=== PATIENT | male | born 1940 | race American Indian/Alaskan Native ===

== ENCOUNTER 2019-02-16 08:01 | Day surgery (SDC) | payer MEDICARE ==
[~2019-02-16 08:01] MED LIST: ceFAZolin/STERILE WATER 2 GM/20 ML SYRINGE IV NR
--- NOTE | 2019-02-16 09:00 | Anesthesia Consultation ---
Anesthesia Consult and Med Hx Date of service: 02/16/19 - Airway Anesthetic Teeth Evaluation: Partials ROM Head & Neck: Adequate Mental/Hyoid Distance: Adequate Mallampati Class: Class II Intubation Access Assessment: Good - Pulmonary Exam CTA: Yes - Cardiac Exam Cardiac Exam: RRR - Pre-Operative Health Status ASA Pre-Surgery Classification: ASA3 Proposed Anesthetic Plan: General (DM, HTn, hypothyroid for GA , clearance on chart) - Pulmonary Hx Smoking: No Hx Sleep Apnea: No (NEELIMA PRE SCREEN HIGH RISK) - Cardiovascular System Hx Hypertension: Yes (X 5 YRS) - Central Nervous System Hx Back Pain: Yes (NECK AND BACK PAIN) - Endocrine Hx Hypothyroidism: Yes
[2019-02-16] MEDS ORDERED: HYDROmorphone 1 MG/1 ML INJ IV PRN (09:01)
[2019-02-16] MEDS ORDERED: ONDANSETRON 4 MG/2 ML INJ IV PRN (09:01)
--- NOTE | 2019-02-16 09:01 | Anesthesia Day of Surgery ---
Anesthesia Day of Surgery - Day of Surgery Patient Examined: Yes Patient H&P Reviewed: Yes Patient is NPO: Yes
[2019-02-16] MEDS ORDERED: LIDOCAINE MPF (2%) 20 MG/1 ML VIAL 5 ML ONE (09:50)
[2019-02-16] MEDS ORDERED: HYDROmorphone 1 MG/1 ML INJ ONE (09:50)
[2019-02-16] MEDS ORDERED: PROPOFOL 200 MG/20 ML VIAL IV ONE (09:50)
[2019-02-16] MEDS ORDERED: LACTATED RINGERS 1,000 ML IV SCH (10:00)
[2019-02-16] MEDS ORDERED: MIDAZOLAM 2 MG/2 ML INJ IV NR (10:00)
[2019-02-16] MEDS ORDERED: WATER FOR IRRIG STERILE 2000 ML IR ONE (10:15)
[2019-02-16] MEDS ORDERED: ONDANSETRON 4 MG/2 ML INJ ONE (10:39)
--- NOTE | 2019-02-16 10:41 | Short Stay Summary ---
Short Stay Documentation Date of service: 02/16/19 - History H&P: obtained from office - Allergies and Medications Current Medications: Allergies No Known Allergies Allergy (Verified 02/02/19 15:52) Home Medications Medication Instructions Recorded Confirmed Last Taken Type Bicalutamide [Casodex] 50 mg PO DAILY 02/02/19 02/16/19 02/15/19 09:00 History Levothyroxine [Synthroid] 75 mcg PO QAM 02/02/19 02/16/19 02/15/19 09:00 History Lisinopril [Zestril] 20 mg PO QDAY 02/02/19 02/16/19 02/15/19 09:00 History glipiZIDE [Glucotrol] 5 mg PO DAILY 02/02/19 02/16/19 02/15/19 09:00 History Active Medications Cefazolin Sodium (Ancef/Sterile Water 2 Gm/20 Ml) 2 gm IV PREOP NR Stop: 02/16/19 23:59 Hydromorphone HCl (Dilaudid) 0.25 mg IV Q10MIN PRN PRN Reason: Pain, Moderate (4-6) Stop: 02/16/19 20:00 Lactated Ringer's (Lactated Ringers) 1,000 mls @ 75 mls/hr IV DIRECT ABDIAS Last Admin: 02/16/19 09:30 Dose: 75 mls/hr Documented by: Midazolam HCl (Versed) 2 mg IV PREOP NR Stop: 02/16/19 23:59 Last Admin: 02/16/19 09:40 Dose: 2 mg Documented by: Ondansetron HCl (Zofran) 4 mg IV ONCE PRN PRN Reason: Nausea And Vomiting Stop: 02/16/19 16:00 - Brief post op/procedure progress note Date of procedure: 02/16/19 Pre-op diagnosis: left hydronephrosis, prostate ca Post-op diagnosis: same Procedure: cysto, left rpg Findings: J hooking of left ureter Surgeon: DILCIA CLARK - Hospital course Hospital course: bactim & norco on chart - Disposition Condition at discharge: Stable Disposition: DC-01 TO HOME OR SELFCARE Short Stay Discharge Plan Follow up with: ARLENE ASHLEY [Other] - 7 Days
--- NOTE | 2019-02-16 10:58 | Operative Report ---
PREOPERATIVE DIAGNOSIS: Left hydronephrosis, prostate cancer. 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 PROCEDURE: Cystoscopy, left retrograde pyelogram. SURGEON: Hebert Dimas MD. ANESTHESIA: General. ESTIMATED BLOOD LOSS: Minimal. FLUIDS: Crystalloid. COMPLICATIONS: No complications. INDICATIONS: This patient is a 78-year-old gentleman seen in the office recently diagnosed with a [place] 9 prostate cancer for 10 or 14 cores. The patient's PSA 12/25/2018 of this year was 70. CT bone scan suggests possibly a small metastasis to his spine. Also of note, the patient has never had a colonoscopy at 78 years of age. He was started on Casodex, but also on CT was noted to have left hydronephrosis, no family history of stones. He has had some blood in his urine. He had a TURP, he states 15 years ago by an unknown urologist. He has no pain in the flank at this time. He presents now for surgical intervention. DESCRIPTION OF PROCEDURE: The patient was taken to the operative suite, placed in a supine position. After adequate general anesthesia, placed in a dorsal lithotomy position, prepped and draped in a sterile fashion. Pancystourethroscopy was performed with a 22-[place] Storz cystoscope, no urethral abnormalities. His prostate did display some moderate trilobar prostatic obstruction. Bladder diffuse trabeculation, difficult to see the ureters. Actually, I was not able to see the right ureter. The left ureter after some time, I was able to visualize it. Left retrograde pyelogram was obtained with an 8-[place] Nemo catheter and 8 mL of contrast. Significant J hooking of the left distal ureter could be appreciated. This appears to be the cause of his hydronephrosis. No obvious stone could be appreciated. Based on these findings, I elected to not do ureteroscopy or place a stent. He was extubated and taken to recovery room in stable condition. His rectal exam revealed nodules on the prostate, firm. Treatment with hormone therapy should help resolve some of the swelling of the prostate and hydronephrosis. He will go home on Bactrim and [place]. JOB# [id number] [facility]
--- NOTE | 2019-02-16 11:43 | Fluoroscopy Report ---
Retrograde ureterogram INDICATION: Left hydronephrosis FINDINGS: 4 images are presented for interpretation. No acute abnormality seen in the [employer] image. Subsequent i mages show injection of the left ureter. There is suboptimal opacification of the proximal most left ureter on the images provided. Within the limits of this study, no filling defects are identified. Th e number of calyces and location of the calyces suggests either a small left kidney. It is possible t hat this could indicate a duplicated collecting system with an unopacified upper pole component IMPRESSION: Suboptimal opacification of the proximal left ureter is noted. Within the limits of this study no daniel ling defects are seen. The left kidney is either small or there is duplication of the collecting system with unopacified upp er pole moiety. Fluoroscopy Time: 12 seconds . Fluoroscopy Images: 4. Signer Name: Virgil Moon MD Signed: 02/16/2019 11:38 AM Workstation Name: [id number]
[2019-02-16 12:17] VITALS: BP 144/76
--- NOTE | 2019-02-16 16:27 | Post Anesthesia Evaluation ---
- Post Anesthesia Evaluation Patient Participated: Yes Airway Patent: Yes Stable Respiratory Function: Yes Nausea/Vomiting: No Temp > 96.8F: Yes Pain Manageable: Yes Adequeate Hydration: Yes Anesthesia Complications: No Block Receding Appropriately: Not Applicable Patient on Ventilator: Yes
== END 2019-02-16 12:40 | disposition home or self-care (01) ==
LOC: OR 08:01
PROVIDERS: ATTEND Urology
DX: N13.39 Other hydronephrosis (principal); N40.0 Benign prostatic hyperplasia without lower urinary tract symptoms; C61 Malignant neoplasm of prostate; I10 Essential (primary) hypertension; E03.9 Hypothyroidism, unspecified; Z79.899 Other long term (current) drug therapy; Z98.49 Cataract extraction status, unspecified eye; Z98.890 Other specified postprocedural states
CPT/HCPCS: 52005; 74420; 82803; 82962; A4217; C1758; C1769; J0690; J1170; J2250; J2405; J2704; J7120; Q9967